=== PATIENT | male | born 1995 | race Caucasian/White ===

== ENCOUNTER 2025-05-28 15:58 | Inpatient (IN) | payer OTHER, SELFPAY ==
--- NOTE | ~2025-05-28 | CT_ITS ---
CLINICAL HISTORY: RLQ pain, appy? CT abdomen and pelvis with contrast Comparison: None provided Findings: Motion and streak artifact limit evaluation. The lung bases are clear. Unremarkable gallbladder and solid organs. No urolithiasis. No bowel obstruction, pneumoperitoneum, or pneumatosis. Prominent inguinal nodes, may be reactive. Dilated appendix with appendicoliths and diffuse periappendiceal fluid stranding. No periappendiceal fluid collections or evidence of perforation. Distended bladder. The bones are intact. IMPRESSION: Findings consistent with non perforated appendicitis. This document has been electronically signed by: Ari Padilla MD on 05/28/2025 18:44:29
[2025-05-28 16:01] VITALS: BP 135/64; PULSE 93; RESP 16; TEMP 36.3; O2SAT 100; BMI 23.0
--- NOTE | 2025-05-28 16:01 | ED_ITS ---
HPI - General Adult General Chief complaint: Abdominal Pain Stated complaint: abdominal pain ? hernia Time Seen by Provider: 05/28/25 17:26 Source: patient Limitations: no limitations History of Present Illness ED Provider: Qian Velazquez PA-C HPI narrative: 29-year-old male who is otherwise healthy presents with abdominal pain since earlier today. Pain is focal to right lower abdomen, unable to describe the nature of his discomfort. It is nonradiating. Pain worse with movement and particularly walking. Associated poor p.o. intake, nausea. Denies dysuria, hematuria, history of kidney stone. Denies fever or diarrhea. Related Data Allergies Allergy/AdvReac Type Severity Reaction Status Date / Time No Known Allergies Allergy Verified 05/28/25 16:02 Review of Systems 2 Review of Systems: Yes all other systems are reviewed and are negative Constitutional: Constitutional: Denies fatigue and Denies fever(s) Cardiovascular: Cardiovascular: Denies chest pain and Denies dyspnea Respiratory: Respiratory: Denies dyspnea Gastrointestinal: Gastrointestinal: Reports abdominal pain, Denies constipation, Denies diarrhea, Reports nausea and Denies vomiting Genitourinary: Genitourinary: Denies hematuria, Denies dysuria and Denies flank pain Endocrine: Endocrine: Denies fatigue PMF Past Medical History Attestation statement: The following information was validated with the patient. Social History Social History Advance Directives: No Advance Directives Information Provided: No Physical Exam ED Vital Signs: Vital Signs - 24 hr 05/28/25 16:01 05/28/25 18:30 Temperature 97.4 F 98.1 F Pulse Rate 93 60 Respiratory Rate 16 20 Blood Pressure 135/64 111/64 Pulse Oximetry 100 100 Oxygen Delivery Method Room Air Room Air BMI result Body Mass Index 23.0 Const Other: Alert well-appearing Orientation/consciousness: patient oriented x3 Resp Effort & Inspection: normal respiratory effort Cardio Other: Normal peripheral perfusion GI Other: Abdomen is soft, nondistended, moderate tenderness that is focal to the right lower abdomen with a mild involuntary guarding Skin Other: Warm dry no rash Neuro General: patient oriented x3, gait normal, no focal motor deficits and CN's II- XI intact bilaterally Psych Other: Cooperative Course Course Course Narrative: This is an RME: Additional HPI, ROS, PE not included below will be deferred to primary provider. RME assessment and note performed by: Jaqueline Dutton PA-C This is a [id number], with a hx of ADHD, who presents to the ER, accompanied by sister, with a complaint of right sided abdominal pain x 4 hours. No hx of these symptoms. No nausea, vomiting or diarrhea. Reports that he does alot of heavy lifting. Pt with TTP overlying right lower quadrant. No rebound, guarding. No urinary symptoms. No n/v/d. Plan: Labs, UA, further ER eval needed. Consultations Consultation #1: Dr. Fox ...he will admit the patient.....he is placing orders for diet and abx Time: 18:49 Medications Administered Discontinued Medications Generic Name Dose Route Start Last Admin Trade Name Freq PRN Reason Stop Dose Admin Sodium Chloride 1,000 mls @ 999 mls/hr 05/28/25 17:45 05/28/25 17:58 Ns IV 05/28/25 18:45 999 mls/hr .Q1H1M KT Administration Iohexol 100 ml 05/28/25 17:48 05/28/25 17:48 Iohexol 350 Mg/Ml 100 Ml Infus..Btl IV 05/28/25 17:49 85 ml ONCE ONE Administration Morphine Sulfate 4 mg 05/28/25 17:31 05/28/25 17:56 Morphine Sulfate 4 Mg/Ml Cartridge IVPUSH 05/28/25 17:32 4 mg ONCE ONE Administration Protocol Medical Decision Making Medical Decision Making MDM Narrative: 29-year-old male who is otherwise healthy presents with abdominal pain since earlier today. Pain is focal to right lower abdomen, unable to describe the nature of his discomfort. It is nonradiating. Pain worse with movement and particularly walking. Associated poor p.o. intake, nausea. Denies dysuria, hematuria, history of kidney stone. Denies fever or diarrhea. No chronic issues History: Per patient I have considered the following differential diagnoses: Appendicitis, UTI, renal colic, torsion, sigmoid diverticulitis Plan: Given distribution of discomfort in nature of the patient's symptoms, I am most concerned for appendicitis. Could be sigmoid diverticulitis although he is not having any concurrent diarrhea. Thought about renal colic, however has not had flank pain, no symptoms. Thought about torsion, however there was no complaint of testicular pain and swelling. Obtaining a CT scan. Giving fluid and morphine. He is not nauseous at this time. I have independently reviewed the following tests: Labs: Leukocytosis of 16.3 with left shift, not anemic, no electrolyte abnormality, urine not infected CT abdomen and pelvis:Findings: Motion and streak artifact limit evaluation. The lung bases are clear. Unremarkable gallbladder and solid organs. No urolithiasis. No bowel obstruction, pneumoperitoneum, or pneumatosis. Prominent inguinal nodes, may be reactive. Dilated appendix with appendicoliths and diffuse periappendiceal fluid stranding. No periappendiceal fluid collections or evidence of perforation. Distended bladder. The bones are intact. IMPRESSION: Findings consistent with non perforated appendicitis. Differential Diagnosis Differential Diagnoses: The differential diagnosis associated with the presentation includes See medical decision-making Admission/Observation Consideration of admission/observation: Escalation of care including admission/observation considered Admit Consult Healthcare Provider Management of the patient was discussed with: Chip Applying Machine Tender Surgery Lab Data MDM Lab Attestation statement: I reviewed the patient's lab results. 05/28/25 16:25 05/28/25 16:25 Labs: Lab Results 05/28/25 Range/Units 16:25 WBC 16.3 H (4.8-10.8) X10*3/uL RBC 4.51 L (4.60-5.80) X10*6/uL Hgb 13.5 L (14.0-18.0) g/dl Hct 39.7 L (42.0-52.0) % MCV 88.0 (80.0-98.0) fL MCH 29.9 (27.0-33.0) pg MCHC 34.0 (31.0-36.0) g/dl RDW 12.6 (11.0-16.0) % Plt Count 283 (160-400) X10*3/uL MPV 9.3 L (9.4-12.4) fL Immature Gran % (Auto) 0.4 (0.0-0.4) % Neut % (Auto) 80.1 H (45-73) % Lymph % (Auto) 9.3 L (20-40) % Nuckolls % (Auto) 8.8 (2-11) % Eos % (Auto) 1.0 (0-4) % Baso % (Auto) 0.4 (0-2) % Lymph # (Auto) 1.5 (1.2-4.9) X10*3/uL [place] # (Auto) 1.4 H (0.1-1.2) X10*3/uL Eos # (Auto) 0.2 (0.0-0.4) X10*3/uL Baso # (Auto) 0.1 (0.0-0.2) X10*3/uL Abs Immat Gran (auto) 0.07 H (0.00-0.03) X10*3/uL Absolute Neuts (auto) 13.0 H (2.0-8.3) x10*3/uL Absolute Nucleated RBC 0.000 (0.0-0.012) X10*3/uL Nucleated RBC % (auto) 0.0 (0.0-0.2) /100WBC Sodium 139 (135-145) mmol/L Potassium 4.0 (3.3-5.1) mmol/L Chloride 107 (96-108) mmol/L Carbon Dioxide 24 (22-29) mmol/L Anion Gap 12 (12-20) BUN 17 H (9-16) mg/dL Creatinine 1.21 (0.5-1.4) mg/dL Estim Creat Clear Calc 98.1 Estimated GFR > 60 Random Glucose 78 (60-115) mg/dL Calcium 9.2 (8.4-10.2) mg/dL Total Bilirubin 0.4 (0.0-1.0) mg/dL Direct Bilirubin 0.1 (0.0-0.5) mg/dL AST 29 (5-37) U/L ALT 35 (0-40) U/L Alkaline Phosphatase 53 (39-117) U/L Total Protein 7.5 (6.5-8.0) g/dL Albumin 4.7 (3.5-5.0) g/dL Lipase 13 (8-78) U/L Urine Color Yellow Urine Appearance Clear Urine pH 7.0 (5.0-9.0) Ur Specific [place] 1.015 (1.005-1.025) Urine Protein Negative (Neg-Trace) mg/dL Urine Glucose (UA) Negative (Negative) mg/dL Urine Ketones Negative (Negative) mg/dL Urine Blood Negative (Negative) Urine Nitrite Negative (Negative) Ur Leukocyte Esterase Negative (Negative) Radiology Impression Discussion of test interpretation with radiology: I have reviewed the radiologist's reading. Critical Care Time Critical Care Time Critical Care Time: Yes Total Critical Care Time: 35 Attestation: I Qian Velazquez PA-C have personally performed 35 minutes of critical care time not including lines and procedures; need for surgical consult need for IV antibiotics need for admit Discharge Plan Discharge Clinical Impression: Acute appendicitis Patient Disposition: Admitted As Inpatient Print Language: Hong Konger
[2025-05-28 16:31] LABS: MANUAL DIFF FLAG NO
[2025-05-28 16:32] LABS: Hematocrit 39.7 % (42.0-52.0); Hemoglobin 13.5 g/dl (14.0-18.0); Imm Gran Abs Auto 0.07 X10*3/uL (0.00-0.03); Imm Gran Pct Auto 0.4 % (0.0-0.4); Lymphocytes Absolute Auto 1.5 X10*3/uL (1.2-4.9); Mean Corpuscular HGB Conc 34.0 g/dl (31.0-36.0); Mean Corpuscular Hemoglobin 29.9 pg (27.0-33.0); Mean Corpuscular Volume 88.0 fL (80.0-98.0); NRBC Abs Auto 0.000 X10*3/uL (0.0-0.012); NRBC Pct Auto 0.0 /100WBC (0.0-0.2); Platelet Count 283 X10*3/uL (160-400); Red Blood Count 4.51 X10*6/uL (4.60-5.80); White Blood Count 16.3 X10*3/uL (4.8-10.8)
[2025-05-28 16:38] LABS: Appearance Urine Clear; Glucose Urine UA Negative (Negative); PH 7.0 (5.0-9.0); Specific Gravity - Urine 1.015 (1.005-1.025)
[2025-05-28 16:49] LABS: Alanine Aminotransferase 35 U/L (0-40); Albumin Level 4.7 g/dL (3.5-5.0); Alkaline Phosphatase 53 U/L (39-117); Anion Gap 12 (12-20); Aspartate Amino Transferase 29 U/L (5-37); Blood Urea Nitrogen 17 mg/dL (9-16); Calcium 9.2 mg/dL (8.4-10.2); Carbon Dioxide 24 mmol/L (22-29); Chloride 107 mmol/L (96-108); Creatinine Clr Calc Pharmacy 98.1; Estimated Glomerular Filt Rate > 60; Lipase 13 U/L (8-78); Potassium 4.0 mmol/L (3.3-5.1); Sodium 139 mmol/L (135-145); Total Protein 7.5 g/dL (6.5-8.0)
[2025-05-28] MEDS: iohexoL 350 MG/ML 100 ML INFUS..BTL IV (17:48)
[2025-05-28 18:30] VITALS: BP 111/64; PULSE 60; RESP 20; TEMP 36.7; O2SAT 100
--- OUTSIDE RECORDS SUMMARY | 2025-05-28 19:37 | XMS_ITS ---
Author Name [facility] Organization Unknown Care Team Organization Name Specialty Phone Email Start Date End Da te [facility] 02/08/20232023
--- OUTSIDE RECORDS SUMMARY | 2025-05-28 19:37 | XMS_ITS | Clinical Summary ---
Author Organization [facility] Address [address] [place] [address] Care Team Providers Care Distributor Sales Manager Name Role Phone Unavailable Primary Care Provider Unavailabl e Immunizations Immunization Administration Dates Next Due Covid-19 Adenovirus Vaccine - Wander 10/09/2020 Social History Tobacco Use Types Packs/Day Years Used Date Smoking Tobacco: Never Assessed Sex and Gender Information Value Date Recorded Sex Assigned at Not on file Legal Sex Male 7:07 PM EST Gender Identity Not on file Sexual Orientation Not on file Plan of Treatment Health Maintenance Due Date Last Done Comments Hepatitis C Virus Screening 1995 HIV Screening 10/13/2008 DTaP/Tdap/Td Vaccines (1 - Tdap) 10/13/2014 Hepatitis B Vaccines (1 of 3 - 19+ 3-dose series) 10/13/2014 Influenza Vaccine 03/06/2025 COVID-19 Vaccine (2 - 2024-2 6 season) 2025 10/09/2020 HPV Vaccines (No Doses Required) Completed Pneumococcal Vaccine: Pediat jackie (0-5 Years) and At-Risk Patients (6 to 49 Years) Aged Out No longer eligible b ased on patient's age to complete this topic Insurance [employer] [place]
--- NOTE | 2025-05-28 20:00 | HO.NURTONUR ---
Report given to Jalyn HARPER in overflow. Questions answered, awaiting transport.
[2025-05-28] MEDS: Dextrose 5 % and Lactated Ring 1,000 ML 125 ML IVCONT (20:09)
--- NOTE | 2025-05-28 20:23 | PHA.MEDREC ---
Addendum entered by Carol Rico RPh 05/28/25 20:49: [facility] reviewed Original Note: Pharmacy Consult ? Medication Reconciliation Pharmacy has completed the medication reconciliation. Spoke with pt and he confirmed his medications. Pt takes his Adderall 20mg caps, 2 caps (40mg) in the morning.
[2025-05-28] MEDS: oxyCODONE HCl Immed Release 5 MG TABLET PO (21:49)
[2025-05-28 22:00] VITALS: BP 110/52; PULSE 74; RESP 16; TEMP 37.1; O2SAT 95
[2025-05-28 22:47] VITALS: RESP 16
[2025-05-29] VITALS (22 sets, daily range): BP systolic 99–123; BP diastolic 44–65; PULSE 57–79; RESP 16–23; TEMP 36.3–37.2; O2SAT 95–100; BMI 24.1
[2025-05-29] MEDS: Dextrose 5 % and Lactated Ring 1,000 ML 125 ML IVCONT ×2 (04:54→16:48)
--- NOTE | 2025-05-29 07:20 | PC.NURSE ---
Pt arrived to ED overflow at 2014 via stretcher. Pt A & O x 4. MONTOYA. Able to follow commands. Pt c/o of 11/13 pain, but reports it is manageable for now. Pt later medicated for pain per MAR. Pt resting in bed with no apparent?distress. Pt able to make needs known. Call sauer in reach. IVF running per MAR. See MAR, flowsheets, and worklist tasks for more info. Plan of care continues.?
--- NOTE | 2025-05-29 07:59 | P.HPGS_ITS ---
History of Present Illness History of Present Illness Date of Service: 05/29/25 <Jaciel Dupree PA-C - Last Filed: 05/29/25 09:41> 05/29/25 <Emerson Fox MD - Last Filed: 05/29/25 12:34> Chief complaint: acute appendicitis <Jaciel Dupree PA-C - Last Filed: 05/29/25 09:41> Narrative: Eliecer Champion is a 29 year old male with a history of ADHD who presented to the ED yesterday with suddent onset RLQ pain. States this came out of nowhere while he was at work and worsened throughout the day. He denies nausea or vomiting, but reports decreased appetite. He reports subjective chills. Workup in the ED significant for leukocytosis 16.3, CT of the abdomen showing dilated appendix with appendicolith and diffuse periappendiceal inflammatory changes. There was no evidence of perforation. He has been started on IV Zosyn. Current medications include daily Adderall, bupropion, hydroxyzine for sleep. Denies cardiac history. He denies surgical history. Denies known allergies. <Jaciel Dupree PA-C - Last Filed: 05/29/25 09:41> Review of Systems Review of Systems: Yes all other systems are reviewed and are negative <Jaciel Dupree PA-C - Last Filed: 05/29/25 09:41> [facility] Past Medical History Medical History: Medical History (Updated 05/29/25 @ 08:37 by Trudi Mann NP) ADHD <Jaciel Dupree PA-C - Last Filed: 05/29/25 09:41> Surgical History Surgical History: Surgical History (Updated 05/29/25 @ 11:06 by Mirian Cook RN) Hx of appendectomy <Jaciel Dupree PA-C - Last Filed: 05/29/25 09:41> Social History Social History: Social History Patient Tobacco Use Status: Current everyday Tobacco user Smoked in Last 30 Days: Yes Use of substances other than those prescribed or required for medical reasons: No Have you been hit, kicked, punched, or otherwise hurt by someone within the past year? If so, by whom?: No Are you DNR?: No Advance Directives: No Advance Directives Information Provided: No <Jaciel Dupree PA-C - Last Filed: 05/29/25 09:41> Meds Allergies/Adverse reactions: Allergies Allergy/AdvReac Type Severity Reaction Status Date / Time No Known Allergies Allergy Verified 05/28/25 16:02 <Jaciel Dupree PA-C - Last Filed: 05/29/25 09:41> Active Medications: Current Medications Calcium Carbonate (Calcium Carbonate 750 Mg Tab.Chew) 750 mg PO Q4H PRN PRN Reason: Heartburn Hydromorphone HCl (Hydromorphone Hcl 0.5 Mg/0.5 Ml Syringe) 0.5 mg IVPUSH Q3H PRN; Protocol PRN Reason: Pain, Severe (Pain Scale 7-10) Last Admin: 05/29/25 05:02 Dose: 0.5 mg Acetaminophen (Ofirmev) 1,000 mg in 100 mls @ 400 mls/hr IV Q6H PRN PRN Reason: Pain, Mild (Pain Scale 1-3) Last Infusion: 05/28/25 20:02 Dose: Infused Dextrose/Lactated Ringer's (D5lr) 1,000 mls @ 125 mls/hr IVCONT .Q8H [facility] Last Admin: 05/29/25 04:54 Dose: 125 mls/hr Piperacillin Sod/Tazobactam (Sod 3.375 gm/ Sodium Chloride) 50 mls @ 100 mls/hr IV Q6H [facility] Last Infusion: 05/29/25 02:48 Dose: Infused Magnesium Hydroxide (Milk Of Magnesia 30 Ml Oral.Susp) 30 ml PO DAILY PRN PRN Reason: Constipation Ondansetron HCl (Ondansetron Hcl 4 Mg/2 Ml Vial) 4 mg IVPUSH QID PRN PRN Reason: Nausea Oxycodone HCl (Oxycodone Hcl Immed Release 5 Mg Tablet) 5 mg PO Q6H PRN PRN Reason: Pain, Moderate(Pain Scale 4-6) Last Admin: 05/28/25 21:49 Dose: 5 mg Sodium Chloride (0.9 % Sodium Chloride Flush 3 Ml Syringe) 3 ml IVFLUSH QSHIFT [facility] Last Admin: 05/29/25 07:50 Dose: Not Given Zolpidem Tartrate (Zolpidem Tartrate 5 Mg Tablet) 5 mg PO BEDTIME PRN PRN Reason: Insomnia <Jaciel Dupree PA-C - Last Filed: 05/29/25 09:41> Home medications: Home Medications ?Medication ?Instructions ?Recorded ?Confirmed ?Last Taken ?Type bupropion HCl 300 mg 24 hr tablet, 300 mg PO DAILY 05/28/25 05/28/25 History extended release dextroamphetamine-amphetamine ER 40 mg PO DAILY 05/28/25 05/28/25 History 20 mg 24hr capsule,extend release (Adderall XR) hydroxyzine HCl 10 mg tablet 10 mg PO BEDTIME 05/28/25 05/28/25 05/27/25 History <SUMANTH Azul Last Filed: 05/29/25 09:41> Physical Exam Vital Signs: Vital Signs: Last Vital Signs Temp 98.5 F 05/29/25 06:14 Pulse 79 05/29/25 06:14 Resp 16 05/29/25 06:14 BP 111/53 L 05/29/25 06:14 Pulse Ox 100 05/29/25 06:14 O2 Del Method Room Air 05/29/25 06:14 BMI result Body Mass Index 23.0 <SUMANTH Azul Last Filed: 05/29/25 09:41> Const: General: comfortable and no acute distress <SUMANTH Azul Last Filed: 05/29/25 09:41> Orientation/consciousness: patient oriented x3 <SUMANTH Azul Last Filed: 05/29/25 09:41> Resp: Effort & Inspection: normal respiratory effort and able to speak in complete sentences <SUMANTH Azul Last Filed: 05/29/25 09:41> GI: Inspection: No distended <SUMANTH Azul Last Filed: 05/29/25 09:41> Palpation (GI): Soft to palpation, Tenderness to palpation present (GI) at McBurney's point and Rovsing's sign positive; with no rebound tenderness and Guarding due to palpation present (GI) (Voluntary) <SUMANTH Azul Last Filed: 05/29/25 09:41> Neuro: General: patient oriented x3 <SUMANTH Azul Last Filed: 05/29/25 09:41> Results Results Labs: Short CBC 05/28/25 Range/Units 16:25 WBC 16.3 H (4.8-10.8) X10*3/uL Hgb 13.5 L (14.0-18.0) g/dl Hct 39.7 L (42.0-52.0) % Plt Count 283 (160-400) X10*3/uL BMP 05/28/25 16:25 Sodium 139 Potassium 4.0 Chloride 107 Carbon Dioxide 24 BUN 17 H Creatinine 1.21 Calcium 9.2 Liver Function 05/28/25 Range/Units 16:25 Total Bilirubin 0.4 (0.0-1.0) mg/dL Direct Bilirubin 0.1 (0.0-0.5) mg/dL AST 29 (5-37) U/L ALT 35 (0-40) U/L Alkaline Phosphatase 53 (39-117) U/L Albumin 4.7 (3.5-5.0) g/dL Urine 05/28/25 Range/Units 16:25 Urine Color Yellow Urine Appearance Clear Urine pH 7.0 (5.0-9.0) Ur Specific [place] 1.015 (1.005-1.025) Urine Protein Negative (Neg-Trace) mg/dL Urine Glucose (UA) Negative (Negative) mg/dL <Jaciel Dupree PA-C - Last Filed: 05/29/25 09:41> Assessment and Plan (1) Acute appendicitis: Qualifiers: Acute appendicitis type: with localized peritonitis Appendicitis abscess presence: without abscess Appendicitis gangrene presence: without gangrene Appendicitis perforation presence: without perforation Qualified Code(s): K35.30 - Acute appendicitis with localized peritonitis, without perforation or gangrene <Jaciel Dupree PA-C - Last Filed: 05/29/25 09:41> Status: Acute <SUMANTH Azul Last Filed: 05/29/25 09:41> 29-year-old male with a history of ADHD who presented to the emergency department yesterday evening with sudden onset right lower quadrant pain while at work. Pain increasing throughout the day with subjective chills. No nausea or vomiting. Found to have acute appendicitis on CT. Findings showing dilated appendix with a fecalith, localized inflammatory changes without evidence a perforation. Labs showing leukocytosis of 16.3, electrolytes within normal limits. On exam is very tender in the right lower quadrant, positive Rovsing's. No evidence of previous abdominal surgeries. He denies any surgical history. He has been started on IV fluids, IV Zosyn, is NPO. We discussed surgical intervention, risks, benefits, alternatives. He is agreeable to proceed with laparascopic appendectomy, possible open this afternoon. Has been added on to OR schedule for this afternoon Continue IV Zosyn, IVF NPO Laparoscopic appendectomy possible open this afternoon <Jaciel Dupree PA-C - Last Filed: 05/29/25 09:41> 29-year-old male with a history of ADHD who presented to the emergency department yesterday evening with sudden onset right lower quadrant pain while at work. Pain increasing throughout the day with subjective chills. No nausea or vomiting. Found to have acute appendicitis on CT. Findings showing dilated appendix with a fecalith, localized inflammatory changes without evidence a perforation. Labs showing leukocytosis of 16.3, electrolytes within normal limits. On exam is very tender in the right lower quadrant, positive Rovsing's. No evidence of previous abdominal surgeries. He denies any surgical history. He has been started on IV fluids, IV Zosyn, is NPO. We discussed surgical intervention, risks, benefits, alternatives. He is agreeable to proceed with laparascopic appendectomy, possible open this afternoon. Has been added on to OR schedule for this afternoon Continue IV Zosyn, IVF NPO Laparoscopic appendectomy possible open this afternoon Patient seen and examined and agree with the above assessment and plan. Patient presents with right lower quadrant abdominal pain beginning yesterday and olvin nues to have the pain this morning. Laboratories revealed an elevated WBC and CT findings revealed a dilated appendix with inflammatory changes as well as a fecalith. Findings are consistent with acute appendicitis without perforation. I reviewed the procedure, risks, and alternatives in detail regarding a laparoscopic or possible open appendectomy. He expressed understanding and consents to the surgery. He has been added onto the operative schedule for today. <Emerson Fox MD - Last Filed: 05/29/25 12:34> Quality Stroke Does the patient have a stroke diagnosis?: No <Jaciel Dupree PA-C - Last Filed: 05/29/25 09:41> VTE Prior VTE?: No <Jaciel Dupree PA-C - Last Filed: 05/29/25 09:41> VTE Risk Level:: Surgical - low <Jaciel Dupree PA-C - Last Filed: 05/29/25 09:41> VTE Device Contraindication: N/A - Device Ordered <Jaciel Dupree PA-C - Last Filed: 05/29/25 09:41> VTE Drug Contraindication: Treatment Not Indicated <Jaciel Dupree PA-C - Last Filed: 05/29/25 09:41> Procedures Date of Service Date of Service: 05/29/25 <Jaciel Dupree PA-C - Last Filed: 05/29/25 09:41> 05/29/25 <Emerson Fox MD - Last Filed: 05/29/25 12:34>
--- NOTE | 2025-05-29 10:51 | HO.NURTONUR ---
Pt A/Ox4. Present to ED with abd pain that started suddenly. CT showed acute appendicitis. Taken to pre-op at 1050 with plans for a lap appy with Dr. Fox. 20g IV to right AC
--- NOTE | 2025-05-29 11:23 | PC.NURSE ---
pt resting comfortably pain 08/15 no facial griamacing noted pwd aware careplan tylenol iv effective for pain
--- NOTE | 2025-05-29 12:27 | HO.ANESPROP2 ---
HPI - Anesthesia Eval Consult details Narrative: 29 yo M presenting for lap appy PMFSH Active Problems Active Problems: All Active Problems (Updated 05/29/25 @ 08:37 by Trudi Mann NP) Acute appendicitis (Acute) Past Medical History Medical History (Updated 05/29/25 @ 08:37 by Trudi Mann NP) ADHD Family History Family history of problems with anesthesia: No Surgical History Surgical History (Updated 05/29/25 @ 11:06 by Mirian Cook RN) Hx of appendectomy History of Problems with Anesthesia: No Social History Social History Patient Tobacco Use Status: Current everyday Tobacco user Smoked in Last 30 Days: Yes Use of substances other than those prescribed or required for medical reasons: No Have you been hit, kicked, punched, or otherwise hurt by someone within the past year? If so, by whom?: No Are you DNR?: No Advance Directives: No Advance Directives Information Provided: No Meds Allergies Allergy/AdvReac Type Severity Reaction Status Date / Time No Known Allergies Allergy Verified 05/28/25 16:02 Active Medications: Current Medications Calcium Carbonate (Calcium Carbonate 750 Mg Tab.Chew) 750 mg PO Q4H PRN PRN Reason: Heartburn Hydromorphone HCl (Hydromorphone Hcl 0.5 Mg/0.5 Ml Syringe) 0.5 mg IVPUSH Q3H PRN; Protocol PRN Reason: Pain, Severe (Pain Scale 7-10) Last Admin: 05/29/25 08:01 Dose: 0.5 mg Acetaminophen (Ofirmev) 1,000 mg in 100 mls @ 400 mls/hr IV Q6H PRN PRN Reason: Pain, Mild (Pain Scale 1-3) Last Admin: 05/29/25 11:11 Dose: 400 mls/hr Dextrose/Lactated Ringer's (D5lr) 1,000 mls @ 125 mls/hr IVCONT .Q8H KT Last Admin: 05/29/25 04:54 Dose: 125 mls/hr Piperacillin Sod/Tazobactam (Sod 3.375 gm/ Sodium Chloride) 50 mls @ 100 mls/hr IV Q6H KT Last Infusion: 05/29/25 08:40 Dose: Infused Magnesium Hydroxide (Milk Of Magnesia 30 Ml Oral.Susp) 30 ml PO DAILY PRN PRN Reason: Constipation Ondansetron HCl (Ondansetron Hcl 4 Mg/2 Ml Vial) 4 mg IVPUSH QID PRN PRN Reason: Nausea Oxycodone HCl (Oxycodone Hcl Immed Release 5 Mg Tablet) 5 mg PO Q6H PRN PRN Reason: Pain, Moderate(Pain Scale 4-6) Last Admin: 05/28/25 21:49 Dose: 5 mg Sodium Chloride (0.9 % Sodium Chloride Flush 3 Ml Syringe) [facility] Last Admin: 05/29/25 07:50 Dose: Not Given Zolpidem Tartrate (Zolpidem Tartrate 5 Mg Tablet) 5 mg PO BEDTIME PRN PRN Reason: Insomnia Home Medications ?Medication ?Instructions ?Recorded ?Confirmed ?Last Taken ?Type bupropion HCl 300 mg 24 hr tablet, 300 mg PO DAILY 05/28/25 05/28/25 05/28/25 History extended release dextroamphetamine-amphetamine ER 40 mg PO DAILY 05/28/25 05/28/25 05/28/25 History 20 mg 24hr capsule,extend release (Adderall XR) hydroxyzine HCl 10 mg tablet 10 mg PO BEDTIME 05/28/25 05/28/25 05/27/25 History Exam Exam Date and Time: 05/29/25 1220 Height,Weight and Vital Signs: Height 6 ft Weight 80.739 kg Last Vital Signs Temp 97.3 F 05/29/25 11:21 Pulse 78 05/29/25 11:21 Resp 20 05/29/25 11:21 BP 116/46 L 05/29/25 11:21 Pulse Ox 98 05/29/25 10:57 O2 Del Method Room Air 05/29/25 10:57 Pertinent Lab Results Pertinent Lab Results: Laboratory Tests 05/28/25 16:25 WBC 16.3 H RBC 4.51 L Hgb 13.5 L Hct 39.7 L MCV 88.0 MCH 29.9 MCHC 34.0 RDW 12.6 Plt Count 283 MPV 9.3 L Immature Gran % (Auto) 0.4 Neut % (Auto) 80.1 H Lymph % (Auto) 9.3 L [place] % (Auto) 8.8 Eos % (Auto) 1.0 Baso % (Auto) 0.4 Lymph # (Auto) 1.5 [place] # (Auto) 1.4 H Eos # (Auto) 0.2 Baso # (Auto) 0.1 Abs Immat Gran (auto) 0.07 H Absolute Neuts (auto) 13.0 H Absolute Nucleated RBC 0.000 Nucleated RBC % (auto) 0.0 Sodium 139 Potassium 4.0 Chloride 107 Carbon Dioxide 24 Anion Gap 12 BUN 17 H Creatinine 1.21 Estim Creat Clear Calc 98.1 Estimated GFR > 60 Random Glucose 78 Calcium 9.2 Total Bilirubin 0.4 Direct Bilirubin 0.1 AST 29 ALT 35 Alkaline Phosphatase 53 Total Protein 7.5 Albumin 4.7 Lipase 13 Urine Color Yellow Urine Appearance Clear Urine pH 7.0 Ur Specific [place] 1.015 Urine Protein Negative Urine Glucose (UA) Negative Urine Ketones Negative Urine Blood Negative Urine Nitrite Negative Ur Leukocyte Esterase Negative Airway Mallampati Class: I TM Dist: >3cm Neck ROM: Full Loose/Missing/Broken Teeth: No (patieny denies any loose or broken teeth) Heart: S1S2 Lungs: CTAB Assessment and Plan Assessment Anesthesia Assessment: Anesthesia Plan Discussed and Chart Reviewed Final Anesthetic Review Family History of Problems with Anesthesia: No History of Problems with Anesthesia: No NPO: Yes ASA Class: II Final Preanesthetic Review: No Changes in Pt Med Stat, Meds/Allgs Chart Reviewed, Consent Obtained/Reviewed and Anes Risks/Benef Reviewed Patient Risk: Low Procedure Risk: Intermediate Anesthetic Plan Anesthetic Plan: GA and Agree w/ Assess. and Plan Disposition: Standard PACU
--- NOTE | 2025-05-29 13:22 | P.OP_ITS ---
Operative Note Operative Note Date of Service: 05/29/25 Narrative: Preoperative diagnosis: Acute appendicitis Postoperative diagnosis: Same Procedure: Laparoscopic appendectomy Surgeon: Emerson Fox MD Customer Service Cashier: Carolynn Carlson PA-C; Jaciel Dupree PA-C Anesthesia: General endotracheal Indications for procedure: 29-year-old male patient presenting with complaints of abdominal pain located in the right lower quadrant found on workup to have an elevated WBC and CT find consistent with acute appendicitis Operative findings: Acutely inflamed appendix without evidence of perforation. Specimen: Appendix Estimated blood loss: Less than 1 mL Complications: None Procedure details: Patient was brought to the OR and placed in a supine position. After administering general anesthesia the patient's abdomen was prepped with ChloraPrep and draped in a sterile fashion. A surgical time-out was called and consent confirmed. Patient received preoperative antibiotics and Venodyne boots were in place. Local anesthesia consisting of 0.5% Sensorcaine with epinephrine was infiltrated in periumbilical region. A 5 mm incision was made below the umbilicus and carried down through subcutaneous tissue. A Veress needle was then inserted while elevating abdominal cavity with towel clips. After a positive drop test the abdomen was insufflated to a pressure of 15 mm of mercury. The Veress needle was removed and a 5 mm trocar inserted. The camera was then inserted in the abdomen explored. A 2nd 5 mm trocars placed in the lower midline. A 12 mm trocar was then placed in the left lower quadrant. The patient was then placed in a Trendelenburg position and rotated to the left. The appendix was identified in the right lower quadrant and brought up using blunt dissecting clamps. The mesentery of the appendix was then divided using the LigaSure. The appendiceal artery was cauterized and divided using the LigaSure. Dissection was continued down to the base of the cecum. An Endo-RED stapler with a purple reload was then used to divide the appendix at the base with the cecum. The appendix was then placed in Endo-Catch bag and brought out through the left lower quadrant incision. The abdomen was then irrigated with saline solution and suctioned dry. Wounds were checked for hemostasis. CO2 was then evacuated from the abdominal cavity and all trocars removed. Fascia was closed in the left lower quadrant incision using a [id number] 0 Polysorb suture. Skin was closed at all incisions using a subcuticular 4-0 Polysorb suture. Steri-Strips 2 x 2 gauze and Tegaderm were then applied. The patient tolerated the procedure well. Sponge, instrument, needle counts reported as correct. The patient was transferred to PACU in stable condition.
[2025-05-30 00:06] VITALS: BP 101/55; PULSE 51; RESP 16; TEMP 36.8; O2SAT 96
[2025-05-30] MEDS: Dextrose 5 % and Lactated Ring 1,000 ML 125 ML IVCONT ×2 (00:09→07:23)
[2025-05-30 03:36] VITALS: BP 111/55; PULSE 61; RESP 17; TEMP 36.3; O2SAT 97
[2025-05-30 08:00] VITALS: BP 109/60; PULSE 57; RESP 16; TEMP 36.1; O2SAT 97
--- NOTE | 2025-05-30 09:17 | HO.POSTANES ---
Post Anesthesia Evaluation Post Anesthesia Evaluation Date of Service: 05/30/25 Vital Signs: Vital Signs Temp Pulse Resp BP Pulse Ox O2 Del Method 05/30/25 08:00 97.0 F 57 16 109/60 97 Room Air 05/30/25 03:36 97.3 F 61 17 111/55 L 97 Room Air 05/30/25 00:06 98.2 F 51 16 101/55 L 96 Room Air Anesthesia: General Endotracheal-GETA Mental Status: Awake Pain Control: Satisfactory Nausea/Vomiting: None Hydration: Adequate Anesthesia-Related Issues: No Anes. Related Issues
--- NOTE | 2025-05-30 11:43 | PM.DS ---
DS: Providers Provider Date of Service: 05/30/25 Date of admission: 05/28/25 19:07 Date of discharge: 05/30/25 Primary care physician: Rubio Shepherd MD Admitting clinician: Emerson Fox Attending physician on discharge: Esther Lai DS: Diagnosis Discharge Diagnosis (1) Acute appendicitis: Start date: 05/29/25 Status: Acute DS: Summary Hospital Course Hospital Course: pt is a 29 year old male with abdominal pain and in ER mejia showed acute appendicitis . He underwent lap appy and by POD 1 doing well tolerating po diet and pain meds and ambulating and urinating. Plan to dc home an fu in 1-2 weeks in the office and no heavy lifting before being seen in the office. Status at Discharge Functional status at discharge: independent ambulation Overall status at discharge: patient is progressing back to baseline Time Attestation Total time managing care of this patient today: 20 mintues. Discharge Coordination Time (in mins): good Quality: Safe Use of Opioids Does Pt have an Active Cancer Diagnosis on the Problem List?: No Quality: Stroke Does the patient have a stroke diagnosis?: No Physical Exam Vital Signs: Vital Signs: Last Vital Signs Temp 97.0 F 05/30/25 08:00 Pulse 57 05/30/25 08:00 Resp 16 05/30/25 08:00 BP 109/60 05/30/25 08:00 Pulse Ox 97 05/30/25 08:00 O2 Del Method Room Air 05/30/25 08:00 O2 Flow Rate 6 05/29/25 15:15 BMI result Body Mass Index 24.1 Const: General: cooperative, healthy appearing, comfortable and no acute distress GI: Other: soft mild tenderness at incisions Extrem: General: Yes normal to inspection DS: Data Data Completed and Pending Pending studies at discharge: Pending at discharge 05/29/25 13:07 Surgical [PTH] Routine Discharge Plan Discharge Anticipated Discharge Date/Time: 05/30/25 11:41 Patient Disposition: Home, Self-Care Discharge Diagnosis: acute appendicitis, s/p laparoscopic appendectomy Referrals: Rubio Shepherd MD [Primary Care Provider, Medical] - 1 Week Discharge Medications: New oxycodone 5 mg tablet 5 mg PO Q6H PRN (Reason: pain) Qty: 20 0RF Rx Instructions: Partial Fill upon patient request. docusate sodium [Colace] 100 mg capsule 100 mg PO BID Qty: 30 0RF Continued dextroamphetamine-amphetamine [Adderall XR] 20 mg capsule,extended release 24hr 40 mg PO DAILY hydroxyzine HCl 10 mg tablet 10 mg PO BEDTIME bupropion HCl 300 mg tablet extended release 24 hr 300 mg PO DAILY Discharge Orders: Discharge Order (Routine); Ordered 05/30/25 Ordered By: Esther Lai Diet: Advance to usual diet Activity on Discharge: No heavy lifting Stand Alone Forms: Patient Portal Discharge page Print Language: Canadian Activity Restrictions/Additional Instructions: If your incision site is sore, you may apply ice to the area for short periods of time (no more than 20 minutes at a time, followed by 20 minutes off). You were prescribed oxycodone to assist with pain management as needed. You can additionally use OTC ibuprofen or acetaminophen as needed for pain. You can remove the dressings at home, they do not need to be redressed. Steri strips can remain in place and will likely fall on their own or in the shower. No heavy lifting >20 pounds No strenuous activity. Do not use creams, lotion, ointment on the incision sites You will follow up with Dr. Fox in the office in 1 week, you can call the office to schedule the appointment ) Please reach out to the office or be seen at the emergency department if you develop: -Fever >101.5 -Increasing pain or swelling of the area -Increased bleeding from the incision site or the incision begins to separate -If you are concerned for incision site infection such as redness, warmth, discharge. Some yellow/pink tinged discharge is normal -You develop nausea or vomiting Care Plan Goals: return to baseline Health Concerns: post op pain Plan of Treatment: follow up in the office in 1 week Assessment: patient doing well Patient Instructions: Laparoscopic Appendectomy (GEN)
[2025-05-30 12:00] VITALS: BP 125/73; PULSE 69; RESP 16; TEMP 36.2; O2SAT 97
--- NOTE | 2025-05-30 13:16 | MHC.CM.PN ---
PT DISCHARGED HOME SELF CARE PRIOR TO CM ASSESSMENT.
== END 2025-05-30 12:36 | disposition home or self-care (01) | DRG 399 ==
LOC: HO.ED 18:58 → HO.EDOVER 19:11 → HO.SSSA 05-29 12:07 → HO.S3 05-29 15:34
PROVIDERS: Physician Assistant Medical; Admitting Provider Surgery; Emergency Provider Emergency Medicine; PCP Pediatrics; Visit Provider Surgery
PROC: 0DTJ4ZZ Resection of Appendix, Percutaneous Endoscopic Approach (ICD-10-PCS; CPT 44970; principal; 2025-05-29 12:00)
DX: K35.80 Unspecified acute appendicitis (principal); F17.210 Nicotine dependence, cigarettes, uncomplicated; Z71.6 Tobacco abuse counseling; F90.9 Attention-deficit hyperactivity disorder, unspecified type; Z79.899 Other long term (current) drug therapy
CPT/HCPCS: 44970; 36415; 74177; 80048; 80076; 81003; 83690; 85025; 88304; 99285; J0131; J1100; J1171; J2003; J2250; J2270; J2405; J2543; J2704; J2795; J3010; Q9967

== ENCOUNTER → 2025-05-28 17:31 | Outpatient (BNV) | payer OTHER, SELFPAY | PROVIDERS: Emergency Provider Emergency Medicine; PCP Pediatrics; Visit Provider Radiology Diagnostic Radiology | DX: R10.31 Right lower quadrant pain (principal) | CPT/HCPCS: 74177 ==

== ENCOUNTER → 2025-05-28 19:07 | Outpatient (BNV) | payer OTHER, SELFPAY | PROVIDERS: Admitting Provider Surgery; Emergency Provider Emergency Medicine; PCP Pediatrics | DX: K35.30 Acute appendicitis with localized peritonitis, without perforation or gangrene (principal) | CPT/HCPCS: 99024 ==

== ENCOUNTER 2025-06-08 12:32 | Outpatient (AMB) | payer OTHER, SELFPAY ==
--- NOTE | 2025-06-08 12:39 | MHC.OFFVIS ---
Vital Signs 06/08/25 12:52 Height 6 ft Weight 168 lb 6 oz BMI 22.8 Intake Visit Reasons: s/p appendectomy Intake Note: Patient here s/p Laparoscopic appendectomy. Patient c/o: reports pain on the incision site, (Lt side), reports good appetite, denies drainage from all incisions. 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 Some pain incision sites but states it is not so bad, overall improving. Reports his diet and bowel function at baseline. Denies fevers or chills. Denies any concern with incision site, denies drainage, bleeding, redness. 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 [facility] Medical History ADHD Surgical History (Updated 06/08/25 @ 13:07 by Jaciel Dupree PA-C) S/P laparoscopic appendectomy (05/29/25) Hx of appendectomy Social History Household Members: Other Household Members Other:: father Housing: House Do you presently have visiting nurse or other home services: No Patient Tobacco Use Status: Current everyday Tobacco user Tobacco use type: Cigarette Cigarettes Per Day: 4 Second Hand Smoke Exposure: No Review of Systems Const All systems reviewed & are unremarkable except as noted in HPI and below Physical Exam Vital Signs: BMI result Body Mass Index 22.8 Const General: comfortable and no acute distress Orientation/consciousness: patient oriented x3 Resp Effort & Inspection: normal respiratory effort and able to speak in complete sentences GI Other: Incision sites appear clean dry intact, Steri-Strips in place, removed in office. Nontender, no erythema, no fluctuance Inspection: No distended Palpation (GI): Soft to palpation and nontender Neuro General: patient oriented x3 Assessment & Plan Assessment & Plan (1) S/P laparoscopic appendectomy: Onset Date: 05/29/25 Comment: Laparoscopic appendectomy Emerson Etienne Code(s): Z90.49 - Acquired absence of other specified parts of digestive tract Category: Medical Plan 29-year-old male s/p laparoscopic appendectomy on 05/29/[address] Fox returning to the office for follow up. Overall doing well, some pain at the incision sites but is tolerable. Denies nausea or vomiting, denies fevers at home. Reassured him that this is appropriate for his timeline postoperatively, expected to improve in a few weeks to months. Diet and appetite at baseline. On exam abdomen is soft and benign, incision sites clean dry intact, no concern for infection. 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 He is okay to resume light duty starting next week. No longer requiring follow up can follow up as needed with any concerns or questions in the future. Medications: Discontinued oxycodone Partial Fill upon patient request. Discontinued Reason: Patient no longer taking 5 mg PO Q6H PRN 20 tabs 0RF pain oxycodone Partial Fill upon patient request. Discontinued Reason: Patient no longer taking 5 mg PO Q6H PRN 8 tabs 0RF pain Coding Level of Care Code Global (03013) Diagnoses S/P laparoscopic appendectomy Z90.49
[2025-06-08 12:52] VITALS: BMI 22.8
--- OUTSIDE RECORDS SUMMARY | 2025-06-08 15:46 | XMS_ITS | Clinical Summary ---
Author Organization [facility] Address [address] [place] [address] Care Team Providers Care Meteorological Technician Name Role Phone Unavailable Primary Care Provider [...] patient's age to complete this topic Insurance [employer] [place]
== END 2025-06-08 13:09 | disposition home or self-care (01) ==
LOC: HO.HGS 12:33
PROVIDERS: PCP Pediatrics
DX: Z90.49 Acquired absence of other specified parts of digestive tract (principal)
CPT/HCPCS: 99024